=== PATIENT | male | born 1955 | race Caucasian/White ===

== ENCOUNTER 2016-09-13 13:55 | Inpatient (IN) | payer OTHER ==
[2016-09-13] MEDS ORDERED: ASPIRIN 81 MG CHEWABLE CTB PO STA (14:00)
[2016-09-13] MEDS ORDERED: NITROGLYCERIN 0.4 MG TAB SL PRN (14:00)
[2016-09-13 14:06] LABS: BASOPHILS % (AUTO) 1 % (0-3); EOSINOPHILS % (AUTO) 2 % (0-9); HEMATOCRIT 47 % (39-53); MEAN CORPUSCULAR HGB CONC 34.8 gm/dl (32.0-36.0); MONOCYTES % (AUTO) 11.2 % (0-12); NEUTROPHILS % (AUTO) 45.3 % (37-80)
[2016-09-13] MEDS ORDERED: METOPROLOL TARTRATE 5 MG/5 ML SOL IV ONE ×3 (14:11→14:33)
[2016-09-13] MEDS: METOPROLOL TARTRATE 5 MG/5 ML SOL IV SCH ×6 (14:13→14:32)
[2016-09-13] MEDS: SODIUM CHLORIDE 0.9% FLUSH 10 ML SOL IV PRN ×3 (14:16→15:09)
[2016-09-13 14:30] LABS: CALCIUM 9.6 mg/dl (8.5-10.1); GLOM FILT RATE 60 mL/min (>60); SODIUM 138 mMol/L (136-145); THYROID STIMULATING HORMONE 3.501 uU/ml (0.358-3.740)
[2016-09-13] MEDS ORDERED: METOPROLOL TARTRATE 25 MG TAB ONE (14:40)
[2016-09-13] MEDS ORDERED: SODIUM CHLORIDE 0.9% 500 ML 500 ML IV ONE ×2 (14:52→15:23)
[2016-09-13] MEDS ORDERED: DILTIAZEM 5 MG/ML SOL IV ONE ×2 (15:09→15:11)
[2016-09-13] MEDS ORDERED: SODIUM CHLORIDE 0.9% FLUSH 10 ML SOL IV SCH (16:30)
[2016-09-13 17:48] VITALS: TEMP 97
[2016-09-13] MEDS ORDERED: PATIENT EDUCATION 1 MISC PRN (17:48)
[2016-09-13] MEDS ORDERED: DILTIAZEM 5 MG/ML 125 MG in SODIUM CHLORIDE 0.9% 100 ML 100 ML IV SCH (18:00)
[2016-09-13] MEDS: SODIUM CHLORIDE 0.9% FLUSH 10 ML SOL IV SCH ×2 (18:08→22:38)
[2016-09-13 19:27] LABS: APPEARANCE,URINE CLEAR; COLOR,URINE YELLOW
[2016-09-13 19:28] LABS: BILIRUBIN,URINE NEGATIVE (NEGATIVE); GLUCOSE, URINE (UA) NEGATIVE (NEGATIVE); KETONES,URINE NEGATIVE (NEGATIVE); LEUKOCYTE ESTERASE ,URINE NEGATIVE (NEGATIVE); NITRATE,URINE NEGATIVE (NEGATIVE); OCCULT BLOOD,URINE NEGATIVE (NEG-TRACE); PH,URINE 5.5; RBC,URINE NEG (0-3AV/HPF); UROBILINOGEN,URINE NORMAL (0.2-1.0 EU); WBC,URINE NEG (0-5AV/HPF)
[2016-09-13] MEDS ORDERED: ENOXAPARIN 40 MG SOL SC SCH (20:00)
[2016-09-13] MEDS: DEXAMETHASONE LEFT EAR SCH (20:08)
[2016-09-13] MEDS: CIPROFLOXACIN LEFT EAR SCH (20:08)
[2016-09-13] MEDS ORDERED: CIPRODEX LEFT EAR SCH (21:00)
[2016-09-14] MEDS: SODIUM CHLORIDE 0.9% FLUSH 10 ML SOL IV SCH (06:14)
[2016-09-14] MEDS ORDERED: ENOXAPARIN 40 MG SOL SC SCH (09:00)
[2016-09-14] MEDS ORDERED: ASPIRIN 81 MG CHEWABLE CTB PO SCH (09:00)
[2016-09-14] MEDS ORDERED: METOPROLOL TARTRATE 50 MG TAB PO SCH ×2 (09:00)
[2016-09-14] MEDS: DEXAMETHASONE LEFT EAR SCH (09:14)
[2016-09-14] MEDS: CIPROFLOXACIN LEFT EAR SCH (09:14)
[2016-09-14] MEDS ORDERED: SODIUM CHLORIDE 0.9% 500 ML 500 ML IV SCH (11:45)
[2016-09-14] MEDS ORDERED: FENTANYL CITRATE 50 MCG/ML SOL ONE (12:28)
[2016-09-14] MEDS ORDERED: PROPOFOL 10 MG/ML EMU IV ONE (12:28)
[2016-09-14] MEDS ORDERED: DILTIAZEM ER 120 MG C24 PO ONE (13:15)
[2016-09-14] MEDS ORDERED: DILTIAZEM HYDROCHLORIDE 60 MG TAB PO ONE ×2 (13:30)
[2016-09-14 14:03] VITALS: BP 130/78; PULSE 63; RESP 24; O2SAT 99
== END 2016-09-14 14:35 | disposition home or self-care (01) | DRG 310 ==
LOC: ED 13:55 → UNDOADMOB 16:15 → ACUTE CARE 16:15 → OBSVTOIN 18:45
PROVIDERS: ADMIT Emergency Medicine; ATTEND Emergency Medicine
PROC: 5A2204Z Restoration of Cardiac Rhythm, Single (ICD-10-PCS; principal; 2016-09-14)
DX: I48.91 Unspecified atrial fibrillation (principal); H66.002 Acute suppurative otitis media without spontaneous rupture of ear drum, left ear; R06.02 Shortness of breath; R42 Dizziness and giddiness; Z82.41 Family history of sudden cardiac death; Z87.891 Personal history of nicotine dependence; Z72.89 Other problems related to lifestyle
CPT/HCPCS: 36415; 71010; 80048; 81001; 82550; 84443; 84484; 85025; 92960; 93005; 93012; 99285; J1650; J3010

== ENCOUNTER 2018-02-19 09:01 | Day surgery (SDC) | payer OTHER ==
[2018-02-19] MEDS ORDERED: BUPIVACAINE LIPOSOME 20 ML SUS ONE (09:02)
[2018-02-19] MEDS ORDERED: LIDOCAINE HCL 1% MPF 30 SOL ONE (09:18)
[2018-02-19] MEDS ORDERED: MIDAZOLAM 2 MG/2 ML SOL ONE (09:18)
[2018-02-19] MEDS ORDERED: PROPOFOL 10 MG/ML EMU IV ONE ×2 (09:18→10:03)
[2018-02-19] MEDS ORDERED: FENTANYL 100MCG/2ML SOL ONE ×2 (09:18→10:00)
[2018-02-19] MEDS ORDERED: ONDANSETRON HCL 4 MG/2 ML SOL ONE (09:50)
[2018-02-19] MEDS ORDERED: ROCURONIUM BROMIDE 10 MG/ML SOL IV ONE (09:55)
[2018-02-19 11:34] VITALS: BP 124/74; PULSE 76; RESP 20; TEMP 97.4; O2SAT 95
== END 2018-02-19 12:06 | disposition home or self-care (01) | DRG 607 ==
LOC: SURG 09:01
PROVIDERS: ATTEND Surgery
DX: A63.0 Anogenital (venereal) warts (principal); Z48.02 Encounter for removal of sutures
CPT/HCPCS: 99001; J2250; J2405; J3010; J2001; J2704; J3490